=== PATIENT | male | born 1935 | race Caucasian/White ===

== ENCOUNTER → 2017-12-23 | Outpatient (CLI) | payer MEDICARE ==
[~2017-12-23] MED LIST: ASPI-496 PO; CHOL200024 PO; GLIP-164 PO; LOSA50TA6 PO; MAGNESIUM PO; MULT-516 PO; ROSU40TA PO; TADA5TAB2 PO; VALA1000 PO; VIT1CAPS42 PO; VITA1TAB28 PO
[2017-12-23 10:36] LABS: MICROSCOPIC AUTO
[2017-12-23 10:46] LABS: ALANINE AMINOTRANSFERASE 39 U/L (12-78); ALBUMIN 3.7 g/dL (3.4-5.0); ANION GAP 5 mmol/L (5-15); CALCIUM 8.5 mg/dL (8.5-10.1); CHLORIDE 105 mmol/L (98-107); CREATININE 1.07 mg/dL (0.7-1.3)
[2017-12-23 10:48] LABS: ALKALINE PHOSPHATASE 59 U/L (45-117); BILIRUBIN,TOTAL 0.6 mg/dL (0.2-1.0); TOTAL PROTEIN 6.9 g/dL (6.4-8.2)
== END | disposition home or self-care (01) ==
LOC: STAR 09:20
PROVIDERS: ATTEND Urology
DX: Z01.818 Encounter for other preprocedural examination (principal); N40.1 Benign prostatic hyperplasia with lower urinary tract symptoms
CPT/HCPCS: 36415; 80053; 81001; 87086; 93005

== ENCOUNTER 2018-02-18 10:43 | Day surgery (SDC) | payer MEDICARE ==
[~2018-02-18] VITALS: Ht 177.8 cm; Wt 71.2 kg
[2018-02-18] MEDS ORDERED: LACTATED RINGERS 1,000 ML IV SCH (11:18)
[2018-02-18 11:22] VITALS: BP 157/87
[2018-02-18] MEDS ORDERED: NEOMY/POLYMYXIN B GU IRR. 1 ML IRRIG ONE (11:50)
[2018-02-18] MEDS ORDERED: FENTANYL PF 100 MCG/2ML ONE ×3 (11:53→13:36)
[2018-02-18] MEDS ORDERED: EPHEDRINE 50 MG/ML, 1ML ONE (11:59)
[2018-02-18] MEDS ORDERED: SUCCINYLCHOLINE 20 MG/ML, 10ML ONE (12:16)
[2018-02-18] MEDS ORDERED: NEOSTIGMINE 1 MG/ML, 10ML ONE (12:16)
[2018-02-18] MEDS ORDERED: ROCURONIUM 10MG/ML,5ML ONE (12:16)
[2018-02-18] MEDS ORDERED: PROPOFOL 10 MG/ML, 20ML ONE (12:16)
[2018-02-18] MEDS ORDERED: CEFAZOLIN 1,000 MG ONE (12:16)
[2018-02-18] MEDS ORDERED: GLYCOPYRROLATE 0.2MG/1ML, 5ML ONE (12:16)
[2018-02-18] MEDS ORDERED: ONDANSETRON 2MG/ML, 2ML ONE (12:16)
[2018-02-18] MEDS ORDERED: DEXAMETHASONE 4 MG/ML, 1ML ONE (12:16)
[2018-02-18] MEDS ORDERED: OXYcodone 5 MG/5 ML ORAL.SOL UDC PO PRN (13:00)
[2018-02-18] MEDS ORDERED: PROMETHAZINE 12.5 MG SUPP PR PRN (13:00)
[2018-02-18] MEDS ORDERED: MEPERIDINE/PF 25MG/0.5ML IVPush PRN (13:00)
[2018-02-18] MEDS ORDERED: ACETAMINOPHEN 325 MG TABLET PO PRN (13:00)
[2018-02-18] MEDS ORDERED: PROCHLORPERAZINE 5 MG/ML, 2ML IV PRN (13:00)
[2018-02-18] MEDS: FENTANYL PF 100 MCG/2ML IV PRN ×5 (13:16→13:51)
[2018-02-18] MEDS ORDERED: OXYcodone 5 MG/5 ML ORAL.SOL UDC ONE (13:22)
[2018-02-18] MEDS ORDERED: ACETAMINOPHEN 650 MG/20.3 ML UDC ONE (13:22)
[2018-02-18] MEDS ORDERED: OPIUM/BELLADONNA SUPP.RECT 16.2-60 MG ONE (13:31)
[2018-02-18] MEDS: LABETALOL 5MG/ML, 20ML IV PRN ×3 (13:53→14:13)
[2018-02-18] MEDS ORDERED: LABETALOL 5MG/ML, 20ML ONE (13:55)
[2018-02-18] MEDS ORDERED: OPIUM/BELLADONNA SUPP.RECT 16.2-60 MG PR PRN (14:00)
== END 2018-02-18 16:30 | disposition home or self-care (01) ==
LOC: OR 10:43 → OUT 16:30
PROVIDERS: ATTEND Urology
DX: N32.89 Other specified disorders of bladder (principal); I10 Essential (primary) hypertension; E11.9 Type 2 diabetes mellitus without complications; E78.5 Hyperlipidemia, unspecified; Z72.89 Other problems related to lifestyle; Z87.891 Personal history of nicotine dependence; Z98.890 Other specified postprocedural states; Z93.3 Colostomy status; Z88.0 Allergy status to penicillin
CPT/HCPCS: 52001; 82962; J0330; J0690; J1100; J2405; J2704; J2710; J3010; J3490